=== PATIENT | female | born 1960 | race American Indian/Alaskan Native ===

== ENCOUNTER 2017-09-24 05:49 | Day surgery (SDC) | payer MEDICARE, MEDICAID ==
[2017-09-10 11:39] VITALS: BMI 32.5
[2017-09-24] MEDS ORDERED: Midazolam 2 MG/2 ML VIAL ONE (07:40)
[2017-09-24] MEDS ORDERED: Propofol 10 mg/ml Inj (20 ML) ONE ×2 (07:40→07:55)
[2017-09-24] MEDS ORDERED: Bupivacaine HCl 0.5% PF (10 ml) Inj ONE (07:47)
[2017-09-24] MEDS ORDERED: ceFAZolin IV 1 gm in Dextrose 2 GM/100 ML BAG IVPB ONE (07:47)
[2017-09-24] MEDS ORDERED: Lidocaine Hydrochloride 20 ML INJ ONE (07:48)
[2017-09-24] MEDS ORDERED: Dexamethasone 4 mg/1 ml ONE (08:41)
[2017-09-24] MEDS ORDERED: HYDROmorphone 0.5 mg/0.5 ml ISec IVP PRN (08:56)
--- NOTE | 2017-09-24 08:56 | PCM.SURG1 ---
Surgeon's Initial Post Op Note - Surgeon's Notes Surgeon: Dr. Christiansen Electroplating Worker: Dr. Vincenzo Phan Type of Anesthesia: IV Sedation, Local Anesthesia Administered By: Dr. Acuña Pre-Operative Diagnosis: Left foot plantarflexed, elongated 5th metatarsal Operative Findings: 3-0, 4-0 Vicryl, 4-0 Nylon Post-Operative Diagnosis: same Operation Performed: 1) Left foot 5th metatarsal head resection. 2) Left foot Excision of plantar skin lesion Specimen/Specimens Removed: Left foot plntar skin lesion Estimated Blood Loss: EBL {In ML}: 5 Blood Products Given: N/A Drains Used: No Drains Post-Op Condition: Good Date of Surgery/Procedure: 09/26/17 Time of Surgery/Procedure: 10:52
[2017-09-24] MEDS ORDERED: Oxycodone/Acetaminophen 5/325 mg Tab PO PRN ×2 (08:57)
[2017-09-24 10:36] VITALS: O2SAT 95
[2017-09-24 11:34] VITALS: BP 133/71; PULSE 78; RESP 16; TEMP 97.8
--- NOTE | 2017-09-25 12:33 | RAD ---
PROCEDURE: Left Foot Radiographs. HISTORY: s/p left foot surgery COMPARISON: 09/10/2017 left foot radiographs FINDINGS: BONES: No acute fractures. Progressive subluxation at the level of the 3rd metatarsal phalangeal joint. JOINTS: Multiple hammertoe deformities. SOFT TISSUES: Normal. OTHER FINDINGS: None. IMPRESSION: No acute findings related to/accounting for the clinical presentation.
--- NOTE | 2017-09-26 13:19 | PCM.OP ---
Operative Report - Operative Report Date of Surgery/Procedure: 09/24/17 Time of Surgery/Procedure: 07:45 Surgeon: Dr. Christiansen Acetylene Burner: Dr. michelle Phan Anesthesia/Sedation: Iv sedation with local Pre-Operative Diagnosis: 1) Left foot elongated and plantarflexed 5th metatarsal. 2) Left foot hyperkeratotic skin lesion to sub met 5 Post-Operative Diagnosis: same Indication for Surgery: Indications: The patient is a 56 year-old female with the above diagnoses. The patient has exhausted all conservative treatment at this time and now requires surgical intervention. The patient signed the consent after careful explanation of risks, benefits, complication and alternatives for surgical procedure. No guarantees were given nor implied. Operative Findings: Preparation: The patient was brought to the operating room and placed on the operating room table in supine position. A well-padded pneumatic ankle tourniquet was placed to the patient's LEFT supramalleolar position. After induction of IV sedation the LEFT lower extremity was then prepped and draped in usual sterile manner. Esmarch was utilized to exsanguinate the patient's LEFT lower extremity. Pneumatic ankle tourniquet was then inflated to 250 mmHg and procedure began. Procedure/Operation Description: Procedure 1) LEFT foot Partial ostectomy of 5th metatarsal head. Next, Attention was directed to the lateral aspect of LEFT foot 5th MTPJ. An approximately 4cm linear longitudinal incision was made laterally over the 5th MTPJ. The incision was deepened through the subcutaneous tissues using sharp and blunt dissection all the way down to bone. Care was taken to identify and retract all vital neurovascular structures. The periosteal and capsular structures were then carefully dissected free of their osseous attachments and reflected medially and laterally thus exposing the head of the 5th metatarsal into the operative site. Next, utilizing a sagittal saw, the distal head of 5th metatarsal head was resected from dorsal distal to proximal plantar orientation and was passed from operative site. Next, Utilizing a hand rasp, the all rough edges were smoothed down. The surgical site was irrigated with copious amount of sterile normal saline. The periosteal and capsular structure were re-approximated with #3-0 Vicryl, the subcutaneous layer was reapproximated with #4-0 vicryl, and the skin layer was re-approximated and coapted using #4-0 Nylon using Horizontal matress suture technique. Procedure 2) LEFT foot excision of skin lesion from plantar aspect of 5th metatarsal head. Attention was directed to the distal-plantar aspect of the Left foot under 5th metatarsal head where a hyperkeratotic skin lesion measuring about 2cm x 1cm was visualized and palpated. At this point, a #15 blade was used to make a eliptical incision to the margin of the lesion. Using a pickup, the lesion was lifted and deeper incision was made using the blade. Once the lesion was completely removed, the wound bed was cleansed and irrigated with sterile normal saline. The area was then sutured with #4-0 Nylon. The LEFT foot was then dressed with Xeroform, 4x4 gauze, Kerlix and Coban. The attending was present during the entire case. Estimated Blood Loss: 10 mL Complications: None Discharge & Condition: Postoperative Condition: The patient tolerated the anesthesia and procedure well and was escorted to the recovery room with vital signs stable and neurovascular status intact to the LEFT foot. Patient will follow up with Dr. Christiansen.
== END 2017-09-24 11:03 | disposition home or self-care (01) ==
LOC: C.SDS 05:49
PROVIDERS: ATTEND Podiatrist
DX: M20.41 Other hammer toe(s) (acquired), right foot (principal); M89.372 Hypertrophy of bone, left ankle and foot; M21.6X2 Other acquired deformities of left foot; L57.0 Actinic keratosis; L72.0 Epidermal cyst; L84 Corns and callosities; M79.672 Pain in left foot; M21.272 Flexion deformity, left ankle and toes
CPT/HCPCS: 11422; 28113; 73620; 88304; 88305; 88311; J0690; J1100; J1170; J2250; J2405; J2704; J3010

== ENCOUNTER 2018-03-12 10:17 | Day surgery (SDC) | payer MEDICARE, MEDICAID ==
[2017-09-10 11:42] VITALS: BMI 32.5
[~2018-03-12 10:17] MED LIST: Acetaminophen-Codeine 300/30 mg Tab PO PRN; Dextrose 5%/0.45% NS 1,000 ML IV SCH; Ofloxacin 0.3% Ophth Soln ONE; ceFAZolin IV 1 gm in Dextrose 1 GM/50 ML BAG IVPB ONE
[2018-03-12] MEDS ORDERED: Lidocaine/Epinephrine 1% 1:100000 10 ML IJ ONE (11:23)
[2018-03-12] MEDS ORDERED: Propofol 10 mg/ml Inj (20 ML) ONE ×2 (11:50→12:07)
[2018-03-12] MEDS ORDERED: Midazolam 2 MG/2 ML VIAL ONE (11:50)
[2018-03-12] MEDS ORDERED: HYDROmorphone 0.5 mg/0.5 ml ISec IVP PRN (12:25)
[2018-03-12 13:16] VITALS: PULSE 79; RESP 16; TEMP 97.4; O2SAT 100
[2018-03-12 13:37] VITALS: BP 137/89
--- NOTE | 2018-03-13 03:12 | OP ---
Copied To: Jose Alberto Yip MD Attending MD: Jose Alberto Yip MD PROCEDURE DATE: 03/12/2018 PREOPERATIVE DIAGNOSIS: Right earlobe laceration. POSTOPERATIVE DIAGNOSIS: Right earlobe laceration. PROCEDURE: Repair of earlobe laceration. SIGNIFICANT FINDINGS: Right earlobe laceration. DESCRIPTION OF PROCEDURE: The patient was brought into the room, placed in supine position. Anesthesia was initiated through IV. The patient was prepped and draped in the usual manner. The inner edges of the earlobe lacerations were denuded of scar so there were sticky edges. Z-plasty was done. 5-0 nylons were used to close the skin. At that point, the patient was taken off anesthesia and taken to the recovery room in stable manner. Jose Alberto Yip MD MTDPaulino
== END 2018-03-12 13:39 | disposition home or self-care (01) ==
LOC: C.SDS 10:17
PROVIDERS: ATTEND Otolaryngology
DX: S01.311A Laceration without foreign body of right ear, initial encounter (principal)
CPT/HCPCS: 12011; J0690; J2001; J2250; J2704

== ENCOUNTER 2018-08-09 12:14 | Outpatient (CLI) | payer MEDICARE, MEDICAID | END 2018-08-09 12:15 | disposition home or self-care (01) | LOC: C.RADIC 12:14 ==

== ENCOUNTER 2018-08-18 08:06 | Outpatient (CLI) | payer MEDICARE, MEDICAID | END 2018-08-18 08:07 | disposition home or self-care (01) | LOC: C.PAT 08:06 | DX: M25.774 Osteophyte, right foot (principal) ==

== ENCOUNTER 2018-08-24 06:10 | Day surgery (SDC) | payer MEDICARE, MEDICAID ==
[2018-08-18 08:21] VITALS: BMI 30.2
[2018-08-24] MEDS ORDERED: ceFAZolin 1 gm in NS 0 GM/0 ML BAG IVPB ONE (07:31)
[2018-08-24] MEDS ORDERED: Lidocaine Hydrochloride 10 ML INJ ONE (07:32)
[2018-08-24] MEDS ORDERED: Bupivacaine 0.25% 20 ML INJ IJ ONE (07:32)
[2018-08-24] MEDS ORDERED: Midazolam 2 MG/2 ML VIAL ONE (07:42)
[2018-08-24] MEDS ORDERED: Propofol 10 mg/ml Inj (20 ML) ONE ×2 (07:42→08:14)
[2018-08-24] MEDS ORDERED: ceFAZolin 1 gm in NS 2 GM/200 ML BAG IVPB ONE (07:48)
[2018-08-24 08:02] LABS: SQUAMOUS EPITHIAL 2 /hpf (0-5)
[2018-08-24] MEDS ORDERED: Lidocaine Hydrochloride 20 ML INJ ONE (08:06)
[2018-08-24 08:12] LABS: URINE BILIRUBIN NEGATIVE (NEGATIVE); URINE CLARITY Hazy (Clear); URINE COLOR AMBER (YELLOW); URINE GLUCOSE (UA) NEGATIVE (Normal)
[2018-08-24 08:13] LABS: PH,URINE 5.5 (5.0-8.0); URINE BLOOD NEGATIVE (NEGATIVE); URINE PROTEIN NEGATIVE (NEGATIVE); URINE UROBILINOGEN 0.2 mg/dL (0.2-1.0)
[2018-08-24 08:14] LABS: URINE LEUKOCYTE ESTERASE NEGATIVE Leu/uL (Negative)
[2018-08-24] MEDS ORDERED: HYDROmorphone 0.5 mg/0.5 ml ISec IVP PRN (09:13)
--- NOTE | 2018-08-24 10:26 | PCM.SURG1 ---
Surgeon's Initial Post Op Note - Surgeon's Notes Surgeon: Dr. Tesfaye Christiansen DPM Clinical Quality Assurance Associate: Dr. Yony Harkins DPM/PGY1 Type of Anesthesia: IV Sedation, Local Anesthesia Administered By: Dr. Garcia. Pre-Operative Diagnosis: Right foot painful non healing ulcerations with underlying bone exostosis of the 1st and 2nd metatarsal bones. Operative Findings: See dictation. Injecables: 20 cc of 1:1 mixture of 1% plain lidocaine and 0.25% plain marcaine for local infilteration block. 10 CC plain lidocaine 1% to augment the local anesthesia. 10 cc of 1:1 mixture of Lidocaine 1% plain and Marcaine 0.25% plain for postoperative pain control. Materials: 3- 0 Vicryl and 3-0 nylon sutures. Post-Operative Diagnosis: Right foot painful non healing ulcerations with underlying bone exostosis of the 1st and 2nd metatarsal bones. Operation Performed: 1- Right 1st metatarsal bone Ostectomy with removal of exostosis. 2- Right 2nd metatarsal bone Ostectomy with removal of exostosis. Specimen/Specimens Removed: 1- Right 1st metatarsal bone distal end containing exostosis. 2- Right 2nd metatarsal bone distal end containing exostosis. Estimated Blood Loss: EBL {In ML}: 5 Blood Products Given: N/A Drains Used: No Drains Post-Op Condition: Good Date of Surgery/Procedure: 08/24/18 Time of Surgery/Procedure: 10:28
[2018-08-24 11:57] VITALS: PULSE 72; RESP 16; TEMP 97.6; O2SAT 95
[2018-08-24 12:03] VITALS: BP 150/60
--- NOTE | 2018-08-24 23:10 | OP ---
PROCEDURE DATE: 08/24/2018 SURGEON: Tesfaye Christiansen DPM VENEER STACKER: Yony Harkins DPM, PGY-1 SAND CONTROL WORKER: Dr. Garcia ANESTHESIA: Local anesthesia with IV sedation. PREOPERATIVE DIAGNOSIS: Right foot painful nonhealing ulceration submetatarsal 1 and 2 with underlying bony exostosis of the first and second metatarsal bones. POSTOPERATIVE DIAGNOSIS: Right foot painful nonhealing ulceration submetatarsal 1 and 2 with underlying bony exostosis of the first and second metatarsal bones. NAME OF THE PROCEDURE: 1. Right foot first metatarsal bone partial ostectomy with removal of the bony exostosis. 2. Right foot second metatarsal bone partial ostectomy with removal of the bony exostosis. INDICATIONS: The patient is a 57-year-old female with above diagnosis. The patient has exhausted all the conservative treatments at this time and now requires surgical intervention. The patient signed the consent after careful explanation of risks, benefits, complications, and alternatives for the surgical procedure. No guarantees were given nor implied. PREPARATION: The patient was brought to the operating room and placed on the operating room table in a supine position. Time-out was performed for identification of the correct patient and procedure. The patient received a 1:1 mixture of 20 mL of 2% lidocaine plain and Marcaine 0.25% plain in a local infiltration block type fashion to the right first and second metatarsal bones. Once local anesthesia was achieved, the left foot was then prepped and draped in a normal sterile manner. Tourniquet was inflated to 250 mmHg after exsanguination of the right foot using Esmarch. Another 10 mL of plain lidocaine 1% was injected in a local infiltration fashion to augment the local anesthesia. PROCEDURE #1: Right foot first metatarsectomy with removal of bony exostosis. Attention was then directed to the dorsal aspect of the first metatarsal, and approximately 3-cm longitudinal incision was made with #15 blade. The incision was deepened through the subcutaneous tissue using sharp and blunt dissection. Care was taken to identify and retract all the vital neurovascular structures. Utilizing a sagittal saw, the distal end of the first metatarsal containing the exostotic bone was resected, and then using a bone rasp smoothening of the distal end of the bone was done. PROCEDURE #2: Right foot second metatarsectomy. Attention was then directed to the dorsal aspect of the second metatarsal, and approximately 3-cm longitudinal incision was made with #15 blade. The incision was deepened through subcutaneous tissue using sharp and blunt dissection. Care was taken to identify and retract all the vital and neurovascular structures. Utilizing a sagittal saw, the distal end of the second metatarsal containing the exostotic bone was resected. Then using bone rasp smoothening of the distal end of the bone was done. The wounds was then irrigated using copious amount of sterile normal saline solution. Approximation of the subcutaneous tissue then using a #3-0 Vicryl suture. The skin then was reapproximated and coapted utilizing #3-0 nylon sutures in a simple suture fashion. The patient received 1:1 mixture of lidocaine 1% plain and Marcaine 1% plain. Postoperative pain control was injected in a local infiltration fashion. Then, debridement of a plantar submetatarsal 1 and 2 hyperkeratotic lesion was done revealing an ulcer submetatarsal 2 almost 1.2 cm x 1.2 cm x 0.3 cm. The wounds then was dressed with Xeroform, DSD, and Coban. POSTOPERATIVE CONDITION: The patient tolerated the anesthesia and the procedure well and then was escorted to the recovery room with vital signs stable and neurovascular status intact to the right lower extremity.. The patient will follow up with Dr. Christiansen upon discharge. YONY HARKINS DPM/JONATHAN Tesfaye Christiansen DPM HEIDI
== END 2018-08-24 11:45 | disposition home or self-care (01) ==
LOC: C.SDS 06:10
PROVIDERS: ATTEND Podiatrist
DX: M25.774 Osteophyte, right foot (principal); L97.519 Non-pressure chronic ulcer of other part of right foot with unspecified severity
CPT/HCPCS: 28296; 81001; 88305; 88311; J0690; J2001; J2250; J2704; J3010

== ENCOUNTER 2018-10-05 06:55 | Day surgery (SDC) | payer MEDICARE, MEDICAID ==
[2018-08-18 08:21] VITALS: BMI 30.2
[2018-10-05] MEDS ORDERED: ceFAZolin 1 gm in NS 1 GM/100 ML BAG IVPB ONE ×2 (07:45→08:14)
[2018-10-05] MEDS ORDERED: Bupivacaine HCl 0.25% PF (10 ml) Inj ONE (07:45)
[2018-10-05] MEDS ORDERED: Lidocaine Hydrochloride 10 ML INJ ONE ×3 (07:45→09:52)
--- NOTE | 2018-10-05 07:48 | RAD ---
Date of service: 10/05/2018 PROCEDURE: Right Foot Radiographs. HISTORY: XRAY DONE IN [facility].... COMPARISON: 08/09/2018 FINDINGS: BONES: The tapering 3rd metatarsal is unchanged. No interval pathology of the 3rd 4th or 5th phalanges or 4th and 5th metatarsals noted. Mixed bone mineralization at the 4th metatarsal base probably relates to old healed trauma here. Further interval resection postsurgical changes have occurred at the 1st and 2nd metatarsals. Generalized osteopenia noted. JOINTS: Arthrosis tarsal metatarsal levels. And midfoot. Grossly similar. SOFT TISSUES: Interval diffuse increased soft tissue swelling. No gas-forming cellulitis noted. However mottled density at the medial forefoot amputated site has interval greater lucency-correlate clinically with any known ulcers here. OTHER FINDINGS: None. IMPRESSION: No interval periosteal reaction or gross cortical destruction seen. Third 4th and 5th digits similar. Interval surgical changes 1st and 2nd. Interval soft tissue changes as above-correlate clinically.
[2018-10-05] MEDS ORDERED: Propofol 10 mg/ml Inj (20 ML) ONE (08:26)
[2018-10-05] MEDS ORDERED: Midazolam 2 MG/2 ML VIAL ONE ×3 (08:26→09:36)
[2018-10-05] MEDS ORDERED: Bupivacaine 0.25% 20 ML INJ IJ ONE (08:46)
[2018-10-05] MEDS ORDERED: Lidocaine/Epinephrine 1% 1:100000 10 ML IJ ONE (09:52)
[2018-10-05] MEDS ORDERED: HYDROmorphone 0.5 mg/0.5 ml ISec IVP PRN (10:23)
--- NOTE | 2018-10-05 10:26 | PCM.SURG1 ---
Surgeon's Initial Post Op Note - Surgeon's Notes Surgeon: Dr. Tesfaye Christiansen Hair And Makeup Designer: Dr. Cleveland Sánchez PGY-2, Dr. Andrew Snow PGY-2 Type of Anesthesia: IV Sedation, Local Anesthesia Administered By: Dr. Nuñez Pre-Operative Diagnosis: 1. skin lesions x2 , right foot. 2. soft tissue mass, right foot. 3. 1st metatarsal ostephyte/exostosis, right foot. 4. 2nd metatarsal osteophyte/exostosis, right foot Operative Findings: see dictation. intraoperative injectables: 10 cc of 1:1 mixture of 1% lidocaine plain and 0.25% marcaine plain, 10 cc of 1% lidocaine with ephinphrene preoperative injectables: 20 cc of 1:1 mixture of 1% lidocaine plain and 0.25% marcaine plain. materials: 3-0 vicryl, 3-0 nylon Post-Operative Diagnosis: 1. skin lesions x2 , right foot. 2. soft tissue mass, right foot. 3. 1st metatarsal ostephyte/exostosis, right foot. 4. 2nd metatarsal osteophyte/exostosis, right foot Operation Performed: 1. excision of skin lesions x 2, right foot. 2. excision of soft tisse mass, right foot. 3. 1st metatarsal osteotomy, right foot. 4. 2nd metatarsal osteotomy, right foot Specimen/Specimens Removed: 1. soft tissue mass, right foot. 2. bone 1st metatasal, right foot Estimated Blood Loss: EBL {In ML}: 30 Blood Products Given: N/A Drains Used: No Drains Post-Op Condition: Good Date of Surgery/Procedure: 10/05/18 Time of Surgery/Procedure: 08:00
[2018-10-05 13:28] VITALS: RESP 18; TEMP 97.6
--- NOTE | 2018-10-05 13:45 | VASCLAB ---
Date of service: 10/05/2018 PROCEDURE: Right Lower Extremity Venous Duplex Exam. HISTORY: Leg pain PRIORS: None. TECHNIQUE: Right common femoral, femoral, popliteal and posterior tibial, peroneal and great saphenous veins were evaluated. Flow was assessed with color Doppler, compressibility, assessment of phasic flow and augmentation response. Report prepared by RACHEL Emerson, RVT FINDINGS: RIGHT: 1. Common Femoral Vein: 1.1. Compressibility - Fully compressible: Thrombus - None: Flow - Phasic: Augmentation -Normal: Reflux - None. 2. Femoral Vein: 2.1. Compressibility - Fully compressible: Thrombus - None: Flow - Phasic: Augmentation -Normal: Reflux - None. 3. Popliteal Vein: 3.1. Compressibility - Fully compressible: Thrombus - None: Flow - Phasic: Augmentation -Normal: Reflux - None. 4. Posterior Tibial Vein: 4.1. Compressibility - Fully compressible: Thrombus - None: Flow - Phasic: Augmentation -Normal: Reflux - None. 5. Peroneal Vein: 5.1. Compressibility - Fully compressible: Thrombus - None: Flow - Phasic: Augmentation -Normal: Reflux - None. 6. Great Saphenous Vein: 6.1. Compressibility - Fully compressible: Thrombus -None: Flow - Phasic: Augmentation - Normal: Reflux - None. OTHER FINDINGS: IMPRESSION: No evidence of deep or superficial vein thrombosis of the right lower extremity with excellent venous flow. Normal valve function noted of the right side. Normal venous flow noted in the left common femoral vein.
[2018-10-05 15:50] VITALS: BP 161/86; PULSE 92; O2SAT 96
--- NOTE | 2018-10-06 13:40 | RAD ---
Date of service: 10/05/2018 PROCEDURE: Right Foot Radiographs. HISTORY: s/p right foot metatarsectomy, exostectomy COMPARISON: October 05, 2018. TECHNIQUE: 3 views obtained. FINDINGS: BONES: Postoperative findings related to resection the 1st metatarsal. Resection the 2nd metatarsal noted. JOINTS: Normal. SOFT TISSUES: Extensive soft tissue swelling progressive compared to prior studies. OTHER FINDINGS: None. IMPRESSION: Satisfactory postoperative status.
--- NOTE | 2018-10-07 23:41 | PCM.OP ---
Operative Report - Operative Report Date of Surgery/Procedure: 10/05/18 Time of Surgery/Procedure: 08:00 Surgeon: Dr. Tesfaye Christiansen General Service Officer: Dr. Cleveland Sánchez PGY-2, Dr. Andrew Snow PGY-2 Anesthesia/Sedation: Dr. Nuñez Pre-Operative Diagnosis: 1. skin lesions x2 , right foot. 2. soft tissue mass, right foot. 3. 1st metatarsal osteophyte/exostosis, right foot. 4. 2nd metatarsal os teophyte/exostosis, right foot Post-Operative Diagnosis: 1. skin lesions x2 , right foot. 2. soft tissue mass, right foot. 3. 1st metatarsal osteophyte/exostosis, right foot. 4. 2nd metatarsal osteophyte/exostosis, right foot Indication for Surgery: Indications: The patient is a 57 year-old female with the above diagnoses. Patient presents to [facility] with painful lesions at the plantar aspect of the foot, painful osteophytes of metatarsal 1 and 2, and painful soft tissue mass on the dorsum aspect of the medial distal forefoot. Patient has exhausted all conservative treatment including but not limited to strapping, stretching, at home physical therapy, modified shoe gear, and oral anti-inflammatories without relief. At this time and now request surgical intervention. The patient signed the consent after careful explanation of risks, benefits, complications and alternatives for surgical procedure. No guarantees were given nor implied. NPO status was confirmed prior to taking patient to the OR Operative Findings: See procedure note below Procedure/Operation Description: Preparation: The patient was brought in to the operating room and placed on the operating room table in a supine position. Timeout was performed for identification of the correct patient and procedure. A well-padded pneumatic ankle tourniquet was placed in a supramalleolar position. The patient received a total of 20 cc of 1:1 mixture of 1% Lidocaine plain and 0.25% Marcaine plain to the right foot. The right foot and ankle was then prepped and draped in normal sterile manner and the procedure began. Esmarch was utilized to exsanguinate the patient's right foot. Pneumatic ankle tourniquet was then inflated to 250 mmHg to the right lower extremity and procedure began. 1. Excision of soft tissue mass, right foot Attention was directed to the dorsal distal medial forefoot where a soft tissue mass was palpable. The soft tissue mass measures approximately 3cm x 2 cm x 3 cm in elevation. The soft tissue was non-movable. Using a #15 blade, an incision was made measuring approximately 3 cm circumferentially surrounding the palpable mass. Using blunt dissection, the dissection was continued down to deep subcutaneous tissue layer. It should be noted that care was taken to identify and retract all vital neurovascular structures. All bleeders were cauterized and ligated as necessary. Upon dissection fatty soft tissue mass was noted. Carefully, using blunt dissection and an iris scissor, the soft tissue mass was excised and passed from the operative field and sent to pathology for evaluation. Wound was irrigated with copious amounts of sterile normal saline. The subcutaneous tissue was then re-approximated using a #3-0 Vicryl in a simple stitch manner. The skin was re-approximated using 3-0 Nylon. 1st metatarsal osteotomy, right foot Procedure: Attention was drawn to the dorsal medial aspect of the foot at the 1 st metatarsal where utilizing a #15 blade, an approximately 4 cm linear longitudinally incision was created over the dorsal aspect of the 1st metatarsal which, it was deepened through subcutaneous tissues with care being taken to identify and retract all vital neurovascular structures. All bleeders were cauterized and ligated as necessary. At this time, a linear periosteal and capsular incision was made overlying the first metatarsal of the right foot. It was noted the partial had a previous partial 1st ray amputation with h ypertrophic osteophytes with exostosis noted surrounding 1st metatarsal. The periosteal were then carefully dissected free of their osseous attachments and reflected medially and laterally thus exposing the shaft and base of the 1st metatarsal. Next utilizing a sagittal bone saw in a dorsal distal to plantar proximal direction a partial 1st metatarsal osteotomy was created. During this time is noted that the patients bone quality at the 1st metatarsal was extremity poor and soft. Bone was resected and sent to pathology. During this time osteotomy was made more proximally using a sagittal saw until healthier bone quality appeared. Any rouge edges and bony osteophytes were smooth down using a ronguer and rasp. 2nd metatarsal osteotomy, right foot Next attention was directed to the 2nd metatarsal. Through the same incision, the 2nd metatarsal was palpable. Blunt and sharp dissection was used through subcutaneous tissues with care being taken to identify and retract all vital neurovascular structures. All bleeders were cauterized and ligated as necessary. At this time, a linear periosteal and capsular incision was made overlying the second metatarsal of the right foot. It was noted the partial had a previous partial 2nd ray amputation with hypertrophic osteophytes with exostosis noted surrounding 2nd distal metatarsal. The periosteal were then carefully dissected free of their osseous attachments and reflected medially and laterally thus exposing the shaft of the 2nd metatarsal. Next utilizing a sagittal bone saw in a dorsal distal to plantar proximal direction a partial 2nd metatarsal osteotomy was created. The bone quality was examined and noted to be good. During this time the correction was assessed and noted to be excellent. All rough edges were smoothed down with a bone rongeur. The wound was then flushed with copious amounts of sterile normal saline. The periosteal and capsular structures were re-approximated and coapted utilizing #3-0 Vicryl. The subcuticular tissues were then re-approximated and coapted utilizing #3-0 Vicryl. The skin was then re-approximated and coapted utilizing #3-0 Nylon. Excision of skin lesion #1, right foot Attention is directed to the plantar aspect of medial forefoot where at lesion hypertrophic in nature measures approximately .5 cm in diameter and .2cm elevated. Utilizing a #15 blade in a semielliptical in a 3:1 ratio measuring approximately 1.5 cm in length was incised. The incision was deepened thorough subcutaneous tissue with care being taken to identify and retract all vital neurovascular structures. All bleeders were cauterized and ligated as necessary. The surgical site was irrigated with copious amounts of normal sterile saline solution. #3-0 Nylon was used to re-approximate the skin in a simple and horizontal suture technique Excision of skin lesion #2, right foot Attention is then directed lateral to the initial lesion where a hypertrophic in nature lesion was seen measuring approximately .4cm in diameter and .2 cm elevated. Utilizing a #15 blade in a semielliptical in a 3:1 ratio measuring approximately 1.5 cm in length was incised. The incision was deepened thorough subcutaneous tissue with care being taken to identify and retract all vital neurovascular structures. All bleeders were cauterized and ligated as necessary. The surgical site was irrigated with copious amounts of normal sterile saline solution. #3-0 Nylon was used to re-approximate the skin in a simple and horizontal suture technique Additional 10 cc of 1:1 mixture of 1% Lidocaine plain and 0.25% Marcaine plain was injected in a local Burns block fashion to right foot and additional 10 cc of 1% Lidocaine with epinephrine was injected to the right midfoot foot. Postoperative bandage consisted of Adaptic, betadine, 4x4 gauze, Lionel and Coban. The pneumatic ankle tourniquet was then deflated and a prompt hyperemic response was noted to all the digits of the right foot Estimated Blood Loss: 30 cc Complications: none, stable Discharge & Condition: Postoperative Condition: The patient tolerated the local anesthesia and procedure well and was escorted to the recovery room with neurovascular status intact to the right foot. Patient is to follow up with Dr. Christiansen within one week.
== END 2018-10-05 14:30 | disposition home or self-care (01) ==
LOC: C.SDS 06:55
PROVIDERS: ATTEND Podiatrist
DX: M25.774 Osteophyte, right foot (principal); L98.9 Disorder of the skin and subcutaneous tissue, unspecified; R22.41 Localized swelling, mass and lump, right lower limb; A49.02 Methicillin resistant Staphylococcus aureus infection, unspecified site; M89.9 Disorder of bone, unspecified
CPT/HCPCS: 11406; 28296; 73630; 82948; 87070; 87181; 88304; 88305; 88311; 93971; 97116; 97162; G8978; G8979; G8980; J0690; J2250; J2704; J3010